=== PATIENT | male | born 1985 ===

== ENCOUNTER 2019-12-24 16:32 | Inpatient (IN) | payer OTHER, BC ==
[~2019-12-24] VITALS: Ht 182.9 cm; Wt 102.9 kg
--- NOTE | 2019-12-24 16:34 | NUR ---
PATIENT ARRIVES FROM HOME WITH ЮЛИЯ IVAN CALLED WHEN PATIENT WAS ACTING FUNNY AND NOTICIED THAT HIS LITHIUM HAS ABOUT 67 PILLS MISSING. IT APPEARS TO BE A LITHIUM OVERDOSE. PATIENT IS ACTING ODDLY TALKING ABOUT UNRELATED THINGS BUT TALKING CLEARLY. HE IS MAKING PURPOSEFUL JERKY MOVEMENTS.
[2019-12-24 17:06] LABS: BASOPHILS # (AUTO) 0.03 x10^3/uL (0-0.1); BASOPHILS % (AUTO) 0 % (0-1); EOSINOPHILS # (AUTO) 0.15 x10^3/uL (0-0.4); EOSINOPHILS % (AUTO) 1 % (1-7); LYMPHOCYTES % (AUTO) 28 % (22-44); MD NO; MEAN CORPUSCULAR HEMOGLOBIN 31.6 pg (27.5-34.5); MEAN CORPUSCULAR HGB CONC 33.4 g/dL (33.2-36.2); MEAN CORPUSCULAR VOLUME 94.8 fL (81-97); MEAN PLATELET VOLUME 9.4 fL (7.4-10.4); MONOCYTES % (AUTO) 7 % (2-9); NEUTROPHILS # (AUTO) 6.81 x10^3/uL (1.8-6.8); NEUTROPHILS % (AUTO) 63 % (42-75); PLATELET COUNT 231 x10^3/uL (130-400); RED BLOOD COUNT 4.59 x10^6/uL (4.38-5.82); RED CELL DISTRIBUTION WIDTH 15.4 % (9.4-14.8)
[2019-12-24] MEDS ORDERED: LITH300C PO (17:06)
--- NOTE | 2019-12-24 17:08 | NUR ---
talked to imya. her number [phone]. patient is apparently manic bipolar and when he goes on these mood swings he loses judgement, has four times been arrested for behavior reasons, and she states "makes poor decisions". She believes he just didn't realize what he was doing when he took medications that she claims happened one hour ago. will call poison control. patient getting xray. on monitor, all objects of harm removed and patient in gown, belongings locked up. he has a sitter outside of room.
[2019-12-24 17:09] LABS: ALANINE AMINOTRANSFERASE 51 U/L (12-78); ANION GAP 11 mmol/L (5-15); CALCIUM 8.3 mg/dL (8.5-10.1); CHLORIDE 111 mmol/L (98-107); CREATININE 0.91 mg/dL (0.7-1.3)
--- NOTE | 2019-12-24 17:18 | NUR ---
talked to Delmi at poison control and he is . recommends iv fluids to flush. states half life is 19 hours, it builds up in brain so even if serum level normal the brain levels could high. delmi states getting renal md onboard will help. delmi states give NS for a goal urine output of 2-3ml/kg/hr. bp will likely tank so the drug of choice dopamine or norepi in that event. Agitated. seizure precations. serotonin syndrome treat with benzo's/if that does'nt work then intubate and propofol. Cooling measures if patient becomes febrile from serotonin syndrome. paralysis and intubation possibly necessary if he becomes toxic. we are unsure of peak but normal doses metabolize in 19 hours, so his dose could take days. monitor Q2-3 hours lithium levels/renal functions BUN /Creatinine. check VBG levels and the more acidotic he gets possible hemodialysis. patient's above 2.5 lithium levels are high risk toxicity and above 4 is severe [employer] depression.
[2019-12-24 17:20] LABS: ALKALINE PHOSPHATASE 80 U/L (45-117); TOTAL PROTEIN 7.5 g/dL (6.4-8.2)
[2019-12-24 17:36] LABS: AMPHETAMINE SCREEN, URINE Negative (Negative); BARBITURATE SCREEN, URINE Negative (Negative); BENZODIAZEPINE SCREEN, URINE Negative (Negative); CANNABINOID SCREEN, URINE Negative (Negative); COCAINE SCREEN, URINE Negative (Negative); METHADONE SCREEN, URINE Negative (Negative); OPIATE SCREEN, URINE Negative (Negative)
--- NOTE | 2019-12-24 17:36 | NUR ---
lithium level 1.6 will immidately tell MD Jose Alejandro
--- NOTE | 2019-12-24 17:47 | NUR ---
delmi from poison control called back and he consulted with cooker meal ayden that until we see a definite trend down that we should check lithium levels every hour. on xray if we see a large metalic burden in belly she recommends bowel irragation with polyethiline glycol 2-3 liters per hour via ng tube.
[2019-12-24] MEDS ORDERED: SODIUM CHLORIDE 0.9% 1,000ML IVBOLUS ONE ×2 (18:00→19:30)
[2019-12-24] MEDS ORDERED: SODIUM CHLORIDE FLUSH 10ML SYR IVF ONE (18:00)
--- NOTE | 2019-12-24 18:10 | NUR ---
seizure pads/precations. patient still responding and agreeable. got patient a meal tray. his eyes are now red. patient seems to respond better to women than men.
--- NOTE | 2019-12-24 18:11 | NUR ---
left msg for miya to call ER, trying to find out if lithium is extended release.
--- NOTE | 2019-12-24 18:26 | NUR ---
patient ate all of dinner patient still has clear speech, and still has erratic behavior and jerky movements. he jerks and flops around in bed, concerned iv stability with his jerky motions. patient is cooperative for me.
--- NOTE | 2019-12-24 19:01 | NUR ---
RECEVIED BEDSIDE REPORT FROM SIMON RN. PT LAYING IN BED, RESPIRATIONS EVEN AND UNLABORED. PT MAKING STATEMENTS "DON'T COME TO MY HOUSE AGAIN, I HAVE VIDEOS OF YOU WITH YOUR BOYS, UNWARENTTED." PT GIVEN BLANKET, EDUCATED IT IS FOR USE TO COVER LEGS ONLY. PT AGREEABLE AT THIS TIME. PT HAS FLUIDS RUNNING, CONNECTED TO BP, CARDIAC, AND O2 MONITORS. IN VIEW OF THE SITTER.
--- NOTE | 2019-12-24 19:18 | NUR ---
PT MAKING STATEMENTS THAT HE'S A DOG, THAT HIS FOOD IS RIGHT WHERE HE WANTS IT BECAUSE IT'S A DOG BOWL.
--- NOTE | 2019-12-24 19:54 | NUR ---
PER MOTHER, DR. JUAN FONTAINE IS PRIMARY MD, WHO HE IS COMPLIANT WITH AND CONTINUALLY GETS HIS LITHIUM LEVELS CHECKED SINCE 04/2016. LONNY HOLLAND, IS THE COUNSELOR. PER MOTHER, IS NOT TO KNOW THIS INFORMATION.
--- NOTE | 2019-12-24 20:53 | NUR ---
PT SITTING UP IN BED DRINKING WATER.
[2019-12-24] MEDS ORDERED: SODIUM CHLORIDE 0.9% 1,000 ML IV ONE (21:50)
[2019-12-24] MEDS ORDERED: SODIUM CHLORIDE FLUSH 10ML SYR IVF PRN (22:00)
--- NOTE | 2019-12-24 22:25 | NUR ---
PT IN VIEW OF THE SITTER. SLEEPING, EYES CLOSED, RESPIRATIONS EVEN AND UNLABORED.
[2019-12-24] MEDS ORDERED: SODIUM CHLORIDE 0.9% 1,000 ML IV SCH (23:23)
[2019-12-24] MEDS ORDERED: DOCUSATE 100 MG CAPSULE PO PRN (23:30)
--- NOTE | 2019-12-24 23:30 | NUR ---
REPORT GIVEN TO ROSE FLOOR RN.
[2019-12-25] VITALS: BP 147/77
[2019-12-25 06:02] LABS: ANION GAP 9 mmol/L (5-15); CALCIUM 8.2 mg/dL (8.5-10.1); CHLORIDE 109 mmol/L (98-107); CREATININE 0.76 mg/dL (0.7-1.3)
[2019-12-25] MEDS ORDERED: ZIPRASIDONE 20 MG INJ IM PRN (10:00)
[2019-12-25] MEDS ORDERED: LORazepam 2 MG/ML, 1ML IV PRN ×5 (12:30)
[2019-12-25] MEDS ORDERED: LORazepam 1MG TABLET PO PRN ×4 (12:30)
[2019-12-25] MEDS ORDERED: LORazepam 0.5MG TABLET PO PRN (12:30)
[2019-12-25] MEDS: DIAZEPAM 5 MG TABLET PO SCH ×2 (12:33→18:23)
[2019-12-25] MEDS ORDERED: THIAMINE 100MG TABLET PO SCH (21:00)
[2019-12-26] MEDS ORDERED: LITH300C PO (17:24)
[2019-12-26] MEDS ORDERED: LITH600C PO (17:24)
== END 2019-12-25 21:00 | DRG 917 ==
LOC: ED 18:32 → 5SO 23:47 → 3N 12-25 14:58
PROVIDERS: ADMIT Family Medicine; ATTEND Hospitalist
DX: T43.592A Poisoning by other antipsychotics and neuroleptics, intentional self-harm, initial encounter (principal); G92 Toxic encephalopathy; F33.9 Major depressive disorder, recurrent, unspecified; F10.239 Alcohol dependence with withdrawal, unspecified; F29 Unspecified psychosis not due to a substance or known physiological condition; Y90.8 Blood alcohol level of 240 mg/100 ml or more; F17.210 Nicotine dependence, cigarettes, uncomplicated; F10.220 Alcohol dependence with intoxication, uncomplicated; E87.6 Hypokalemia; G83.9 Paralytic syndrome, unspecified
CPT/HCPCS: 36415; 74018; 80048; 80053; 80178; 80307; 82550; 84443; 85025; 93005; G0378; J3486; J7030

== ENCOUNTER 2019-12-25 18:39 | Inpatient (IN) | payer BC ==
[~2019-12-25] VITALS: Ht 182.9 cm; Wt 102.9 kg
[~2019-12-25 18:39] MED LIST: LITH300C PO
[2019-12-25] MEDS ORDERED: ONDANSETRON ODT 4 MG PO PRN (20:00)
[2019-12-25] MEDS ORDERED: POLYETHYLENE GLYCOL 17 GM PACKET PO PRN (20:00)
[2019-12-25] MEDS ORDERED: ACETAMINOPHEN 325 MG TABLET PO PRN (20:00)
[2019-12-25] MEDS ORDERED: DOCUSATE 100 MG CAPSULE PO PRN (20:00)
[2019-12-25] MEDS ORDERED: BISACODYL 10 MG SUPP PR PRN (20:00)
[2019-12-25 21:12] VITALS: BP 155/79
[2019-12-25] MEDS ORDERED: DIAZEPAM 5 MG/ML, 2ML IM ONE (21:30)
[2019-12-25] MEDS ORDERED: DIAZEPAM 10 MG TABLET PO ONE (21:30)
[2019-12-26] MEDS ORDERED: DIAZEPAM 5 MG TABLET PO SCH (06:30)
[2019-12-26] MEDS ORDERED: DIAZEPAM 10 MG TABLET PO PRN (07:30)
[2019-12-26] MEDS: OLANZAPINE ODT 10MG PO SCH ×3 (07:58→20:05)
[2019-12-26] MEDS: DIAZEPAM 10 MG TABLET PO SCH ×3 (12:46→20:05)
[2019-12-26] MEDS ORDERED: LITH300C PO (17:24)
[2019-12-26] MEDS ORDERED: LITH600C PO (17:24)
[2019-12-26 19:38] VITALS: BP 139/90
[2019-12-27 07:00] VITALS: BP 140/100
[2019-12-27] MEDS: OLANZAPINE ODT 10MG PO SCH ×2 (08:28→20:00)
[2019-12-27] MEDS: DIAZEPAM 10 MG TABLET PO SCH ×3 (08:28→20:00)
[2019-12-27 19:01] VITALS: BP 149/90
[2019-12-27] MEDS: LITHIUM CARBONATE 300 MG CAPSULE PO SCH (19:59)
[2019-12-28 05:15] LABS: MICROSCOPIC NOT IND
[2019-12-28 07:00] VITALS: BP 131/87
[2019-12-28] MEDS: LITHIUM CARBONATE 300 MG CAPSULE PO SCH ×2 (09:20→20:03)
[2019-12-28] MEDS: OLANZAPINE ODT 10MG PO SCH ×2 (09:21→20:03)
[2019-12-28] MEDS: DIAZEPAM 10 MG TABLET PO SCH ×3 (09:21→20:01)
[2019-12-28] MEDS ORDERED: NICOTINE 21 MG/24 HR PATCH.TD24 ONE (15:01)
[2019-12-28] MEDS: NICOTINE 21 MG/24 HR PATCH.TD24 TD SCH (15:03)
[2019-12-28 20:20] VITALS: BP 138/90
[2019-12-29 07:28] VITALS: BP 102/65
[2019-12-29] MEDS: OLANZAPINE ODT 10MG PO SCH ×2 (08:55→20:07)
[2019-12-29] MEDS: DIAZEPAM 10 MG TABLET PO SCH (08:55)
[2019-12-29] MEDS: LITHIUM CARBONATE 300 MG CAPSULE PO SCH ×2 (08:55→20:07)
[2019-12-29] MEDS: NICOTINE 21 MG/24 HR PATCH.TD24 TD SCH (08:55)
[2019-12-29] MEDS ORDERED: DIAZEPAM 5 MG TABLET PO PRN (13:30)
[2019-12-29 19:36] VITALS: BP 133/91
[2019-12-30 07:59] VITALS: BP 135/92
[2019-12-30] MEDS: LITHIUM CARBONATE 300 MG CAPSULE PO SCH (10:01)
[2019-12-30] MEDS: NICOTINE 21 MG/24 HR PATCH.TD24 TD SCH (10:02)
[2019-12-30] MEDS: OLANZAPINE ODT 10MG PO SCH (10:02)
[2019-12-30] MEDS ORDERED: LITH300C PO ×2 (10:21)
[2019-12-30] MEDS ORDERED: OLAN10TA7 PO (10:21)
[2019-12-30] MEDS ORDERED: NICO-487 TD (10:21)
[2019-12-30] MEDS ORDERED: DIAZ5TAB4 PO (10:21)
== END 2019-12-30 12:14 | disposition home or self-care (01) | DRG 885 ==
LOC: 3E 21:17
PROVIDERS: ADMIT Psychiatry & Neurology Psychosomatic Medicine; ATTEND Psychiatry & Neurology Psychosomatic Medicine
DX: F25.0 Schizoaffective disorder, bipolar type (principal); F10.239 Alcohol dependence with withdrawal, unspecified; F31.9 Bipolar disorder, unspecified; F90.9 Attention-deficit hyperactivity disorder, unspecified type; Z83.3 Family history of diabetes mellitus; Z91.5 Personal history of self-harm; Z78.1 Physical restraint status; F17.210 Nicotine dependence, cigarettes, uncomplicated
CPT/HCPCS: 71045; 81003; J3360